=== PATIENT | female | born 1930 | race Caucasian/White ===

== ENCOUNTER 2019-11-11 09:13 | Inpatient (IN) | payer MEDICARE, MEDICAID ==
[~2019-11-11] VITALS: Ht 162.6 cm; Wt 68.2 kg
[~2019-11-11 09:13] MED LIST: ASPI81TA52 PO; BENA10TA PO; GLYB-97 PO; HYDR-4383 PO; HYDR1TAB69 PO; [UNRECOGNIZED DRUG - CODE] PO
[2019-11-11 10:25] LABS: CLARITY,URINE CLEAR (Clear); COLOR,URINE YELLOW (Yellow); GLUCOSE, URINE >=1000 mg/dl (Neg); KETONES,URINE TRACE mg/dl (Neg); LEUKOCYTE ESTERASE ,URINE NEGATIVE (Neg); NITRITES, URINE NEGATIVE (Neg); OCCULT BLOOD,URINE NEGATIVE (Neg); PROTEIN,URINE NEGATIVE (Neg); UROBILINOGEN,URINE 0.2 E.U/dL (0.2-1.0)
[2019-11-11 10:28] LABS: UA COLLECTION TYPE CLN CATCH MIDSTREAM
[2019-11-11 10:29] LABS: BASOPHILS # (AUTO) 0.1 X10'3 (0-0.2); BASOPHILS % (AUTO) 0.4 % (0-1); EOSINOPHILS % (AUTO) 0.1 % (0-6); HEMATOCRIT 35.2 % (35.0-45.0); HEMOGLOBIN 12.4 g/dl (12.0-16.0); LYMPHOCYTES % (AUTO) 7.8 % (21-51); MEAN CORPUSCULAR HEMOGLOBIN 29.7 PG (27.0-31.0); MEAN CORPUSCULAR HGB CONC 35.3 g/dL (33.0-36.5); MEAN PLATELET VOLUME 7.1 FL (7.4-10.4); MONOCYTES # (AUTO) 0.9 X10'3 (0-0.9); MONOCYTES % (AUTO) 6.6 % (2-12); NEUTROPHILS # (AUTO) 11.4 X10'3 (1.8-7.7); NEUTROPHILS % (AUTO) 85.1 % (42-75); PLATELET COUNT 271 X10'3 (140-440); RED BLOOD COUNT 4.19 X10'6 (4.20-5.60); RED CELL DISTRIBUTION WIDTH 12.3 % (11.5-14.5); WHITE BLOOD COUNT 13.4 X10'3 (4.5-11.0)
[2019-11-11 10:31] LABS: SQUAMOUS EPITHELIAL CELL,UR FEW /LPF (FEW)
[2019-11-11 10:33] LABS: BACTERIA,URINE FEW /HPF (Neg); RBC,URINE NONE SEEN /HPF (0-2); WBC,URINE 0-4 /HPF (0-4)
[2019-11-11 10:37] LABS: ALANINE AMINOTRANSFERASE 18 U/L (12-78); ALBUMIN 3.3 G/DL (3.4-5.0); ALKALINE PHOSPHATASE 72 IU/L (46-116); ANION GAP 10 (8-16); ASPARTATE AMINO TRANSFERASE 20 U/L (10-37); BLOOD UREA NITROGEN 10 MG/DL (7-18); BUN/CREATININE RATIO 10.6 (6.6-38.0); CALCIUM 9.5 MG/DL (8.5-10.1); CHLORIDE 82 MMOL/L (99-107); CREATININE 0.94 MG/DL (0.40-0.90); GLUCOSE 251 MG/DL (70-104); POTASSIUM 3.2 MMOL/L (3.5-5.1); TOTAL CARBON DIOXIDE 25.6 MMOL/L (24-32); TOTAL PROTEIN 6.7 G/DL (6.4-8.2); eGFR 56 ML/MIN
[2019-11-11 10:40] LABS: SODIUM 118 MMOL/L (135-145)
[2019-11-11] MEDS ORDERED: normal saline 1000ML IV soln IVB ONE (10:45)
[2019-11-11] MEDS: morphine 2 MG/ML inj. syringe IV PRN ×2 (10:46→13:59)
[2019-11-11] MEDS ORDERED: PRAV80TA3 PO (11:01)
[2019-11-11] MEDS ORDERED: HYDR25TA4 PO (11:01)
[2019-11-11] MEDS ORDERED: GABA-530 PO (11:01)
[2019-11-11] MEDS ORDERED: MELO-102 PO (11:01)
[2019-11-11] MEDS ORDERED: BENA40TA72 PO (11:01)
[2019-11-11] MEDS ORDERED: AMA1T PO (11:01)
[2019-11-11] MEDS ORDERED: mag hydrox/Alum hydrox/simeth 30ml oral suspension PO PRN (11:30)
[2019-11-11] MEDS ORDERED: magnesium hydroxide 30ml (MOM) UD suspension PO PRN (11:30)
[2019-11-11] MEDS ORDERED: magnesium 4gm in 100ml NS 100 ML IV PRN (11:30)
[2019-11-11] MEDS ORDERED: magnesium 2GM in 50ml NS 50 ML IV PRN (11:30)
[2019-11-11] MEDS ORDERED: magnesium Cl slow-release 64mg tablet PO PRN (11:30)
[2019-11-11] MEDS ORDERED: metoclopramide 5 mg/ml inj IV PRN (11:30)
[2019-11-11] MEDS ORDERED: potassium Cl 20 mEq SR tablet PO PRN ×2 (11:30)
[2019-11-11] MEDS ORDERED: HYDROcodone/acetaminophen 10/325mg tab PO PRN (11:30)
[2019-11-11] MEDS ORDERED: acetaminophen 325mg tablet PO PRN ×2 (11:30)
[2019-11-11] MEDS ORDERED: HYDROcodone/acetaminophen 5mg/325mg tablet PO PRN (11:30)
[2019-11-11] MEDS ORDERED: potassium CL 10mEq/100ml bag 100 ML IV PRN ×2 (11:30)
[2019-11-11] MEDS ORDERED: bisacodyl 10mg suppository rectal RC PRN (11:30)
[2019-11-11] MEDS: normal saline 1000ml 1,000 ML IV SCH ×2 (11:57→17:29)
[2019-11-11 12:21] LABS: HEMOGLOBIN A1C 8.4 % (4.5-6.2)
[2019-11-11] MEDS: ondansetron/PF 4mg/2ml inj IV PRN ×2 (13:59→20:47)
--- NOTE | 2019-11-11 14:15 | NUR ---
Patient agitated, yelling, stating "you all want to kill me, what did I do to you?... Take me back to my room..." Patient attempting to get out of bed, pulling at lines, orders received by Dr Haji.
[2019-11-11] MEDS: LORazepam 2 mg/ml vial IV PRN (14:19)
--- NOTE | 2019-11-11 14:45 | NUR ---
Attempted to place BP cuff back on patient, patient woke up and stated "get that shit off of my arm, get that out of my room." Patient reoriented, sitting safeluy in bed.
--- NOTE | 2019-11-11 16:00 | NUR ---
Pt received from ED at 1600. Pt transferred from [facility] to bed. Attempted to change pts bed d/t incontinence. Pt hit my arm 3xs and starting yelling racial and inappropriate names to myself. Pt went on and on during the Two person skin check and attempting to get IV fluids running. Pt's daughter came into pts room at 1645 and was upset with her mom's confusion. Informed pts daughter of lab tests and other aspects of transfer from ED and informed her that we will watch closely. Pt continued to yell multiple names and was combative in front of her daughter Hemalatha. Continued to educate Hemalatha with minimal understanding by daughter. TABS alarm and bed alarm set on pt. Pt refused dinner at 1730. Made recommendation to move pt to a closer room at 1700. Will be moved as soon as possible to room 4018.
[2019-11-11 16:15] VITALS: BP 135/71
[2019-11-11] MEDS ORDERED: dextrose ORAL solution 15 GM/59 ML bottle PO PRN ×2 (16:55)
[2019-11-11] MEDS ORDERED: MESSAGE TO PHARMACY PO ONE (16:55)
[2019-11-11] MEDS ORDERED: dextrose 50%-water 50ml dispensing syringe IV PRN ×2 (16:55)
[2019-11-11] MEDS ORDERED: glucagon, human recombinant 1mg kit SUBCUT PRN (16:55)
[2019-11-11 18:00] VITALS: BP 133/51
--- NOTE | 2019-11-11 18:00 | NUR ---
Patient in room ORTHO 4018. I have received report from BRAD Li and had the opportunity to ask questions and assume patient care.
[2019-11-11] MEDS: insulin Lispro (HumaLOG) vial - multi-dose SQ SCH (19:49)
[2019-11-11] MEDS: K and/or MAG REPLACEMENT MC SCH (20:00)
[2019-11-11] MEDS ORDERED: heparin, porcine 5000 units/ml vial SQ SCH (20:00)
[2019-11-11] MEDS: heparin, porcine 5000 units/ml vial SQ SCH (20:34)
[2019-11-11] MEDS: lisinopril 20mg tablet PO SCH (20:35)
[2019-11-11] MEDS ORDERED: temazepam 15mg capsule PO PRN (21:00)
[2019-11-11] MEDS: NYSTATIN CREAM - 30GM TUBE TP SCH (21:34)
[2019-11-11] MEDS: insulin glargine (Lantus) pen - multi-dose SQ SCH (21:36)
--- NOTE | 2019-11-12 02:36 | NUR ---
Pt reported having chest pain at 0140, EKG completed and reviewed by Dr. De Anda.
--- NOTE | 2019-11-12 05:59 | NUR ---
Problems reprioritized. Patient report given, questions answered & plan of care reviewed with BRAD Li.
[2019-11-12 06:00] VITALS: BP 115/73
[2019-11-12] MEDS: ondansetron/PF 4mg/2ml inj IV PRN (06:56)
[2019-11-12 06:57] LABS: BASOPHILS % (AUTO) 0.1 % (0-1); EOSINOPHILS % (AUTO) 0.1 % (0-6); HEMATOCRIT 32.2 % (35.0-45.0); HEMOGLOBIN 11.3 g/dl (12.0-16.0); LYMPHOCYTES # (AUTO) 1.2 X10'3 (1.1-4.8); LYMPHOCYTES % (AUTO) 11.4 % (21-51); MEAN CORPUSCULAR HEMOGLOBIN 29.7 PG (27.0-31.0); MEAN CORPUSCULAR VOLUME 84.9 FL (78-98); MEAN PLATELET VOLUME 7.4 FL (7.4-10.4); MONOCYTES # (AUTO) 0.6 X10'3 (0-0.9); MONOCYTES % (AUTO) 5.2 % (2-12); NEUTROPHILS # (AUTO) 8.8 X10'3 (1.8-7.7); NEUTROPHILS % (AUTO) 83.2 % (42-75); PLATELET COUNT 276 X10'3 (140-440); RED CELL DISTRIBUTION WIDTH 12.4 % (11.5-14.5); WHITE BLOOD COUNT 10.5 X10'3 (4.5-11.0)
[2019-11-12] MEDS: normal saline 1000ml 1,000 ML IV SCH (07:07)
[2019-11-12 07:22] LABS: ALANINE AMINOTRANSFERASE 19 U/L (12-78); ALBUMIN 2.8 G/DL (3.4-5.0); ALKALINE PHOSPHATASE 61 IU/L (46-116); ANION GAP 8 (8-16); ASPARTATE AMINO TRANSFERASE 24 U/L (10-37); BILIRUBIN,TOTAL 0.9 MG/DL (0.1-1.0); BLOOD UREA NITROGEN 8 MG/DL (7-18); BUN/CREATININE RATIO 9.3 (6.6-38.0); CALCIUM 8.5 MG/DL (8.5-10.1); CHLORIDE 85 MMOL/L (99-107); CREATININE 0.86 MG/DL (0.40-0.90); GLUCOSE 183 MG/DL (70-104); MAGNESIUM 1.5 MG/DL (1.5-2.4); POTASSIUM 3.5 MMOL/L (3.5-5.1); TOTAL CARBON DIOXIDE 26.8 MMOL/L (24-32); TOTAL PROTEIN 5.7 G/DL (6.4-8.2); eGFR 62 ML/MIN
[2019-11-12 07:26] LABS: SODIUM 120 MMOL/L (135-145)
[2019-11-12] MEDS ORDERED: dextrose 5%-1/4 normal saline 1,000 ML IV SCH (07:35)
[2019-11-12] MEDS: metroNIDAZOLE-Flagyl 500mg/NS 100 ML IV SCH ×3 (08:00→23:58)
[2019-11-12] MEDS: K and/or MAG REPLACEMENT MC SCH ×2 (08:00→20:00)
[2019-11-12] MEDS: NYSTATIN CREAM - 30GM TUBE TP SCH ×2 (08:00→21:12)
[2019-11-12] MEDS: heparin, porcine 5000 units/ml vial SQ SCH ×2 (08:00→20:00)
[2019-11-12] MEDS: LORazepam 2 mg/ml vial IV PRN (08:25)
[2019-11-12] MEDS: ciprofloxacin lact 400MG/200ML 200 ML IV SCH ×2 (08:31→20:58)
[2019-11-12] MEDS: Potassium Cl inj 20 MEQ in normal saline 1000ml 990 ML IV SCH (11:35)
[2019-11-12] MEDS ORDERED: haloperidol 1mg tablet PO PRN (11:35)
[2019-11-12] MEDS ORDERED: haloperidol lactate 5mg/ml inj IM ONE (11:55)
[2019-11-12] MEDS: insulin Lispro (HumaLOG) vial - multi-dose SQ SCH (13:41)
--- NOTE | 2019-11-12 13:58 | NUR ---
DM Consult: A1C 8.4 hx T2DM; admit w/ encephalopathy r/t hyponatremia Na 118 and nausea s/p fall. Noted takes HCTZ at home per EMR. AOx1 at this time not appropriate for DM ed; written ed w/ RD contact information placed in pt chart. Addendum: 11/12/19 at [address] Amended: Links added.
[2019-11-12] MEDS: famotidine 20mg tablet PO SCH ×2 (16:30→20:56)
[2019-11-12] MEDS: mag hydrox/Alum hydrox/simeth 30ml oral suspension PO SCH ×2 (16:42→21:00)
[2019-11-12 18:00] VITALS: BP 123/61
--- NOTE | 2019-11-12 18:05 | NUR ---
Patient in room ORTHO 4018. I have received report from BRAD Li and had the opportunity to ask questions and assume patient care.
--- NOTE | 2019-11-12 20:45 | NUR ---
Patient is agitated, trying to get out of bed. She is kicking, hitting, and cussing at staff.
[2019-11-12] MEDS: lactobacillus rhamnosus 10,000 MMU CELLS/CAPSULE PO SCH (20:56)
[2019-11-12] MEDS: lisinopril 20mg tablet PO SCH (20:57)
[2019-11-12] MEDS: insulin glargine (Lantus) pen - multi-dose SQ SCH (21:15)
[2019-11-12 22:00] VITALS: BP 123/53
[2019-11-13] MEDS: Potassium Cl inj 20 MEQ in normal saline 1000ml 990 ML IV SCH ×3 (00:02→16:20)
[2019-11-13] MEDS ORDERED: haloperidol lactate 5mg/ml inj IM ONE (04:25)
--- NOTE | 2019-11-13 05:03 | NUR ---
Patient woke up and became agitated and aggressive towards staff. Pulled tele off, refused to have it put back on. Security was called. Dr Rodríguez was notified, haladol was ordered and administered.
--- NOTE | 2019-11-13 05:40 | NUR ---
Patient refused to have labs drawn.
--- NOTE | 2019-11-13 06:27 | NUR ---
Problems reprioritized. Patient report given, questions answered & plan of care reviewed with BRAD Li.
[2019-11-13] MEDS: mag hydrox/Alum hydrox/simeth 30ml oral suspension PO SCH ×4 (07:00→21:00)
[2019-11-13] MEDS: heparin, porcine 5000 units/ml vial SQ SCH ×2 (08:00→20:00)
[2019-11-13] MEDS: NYSTATIN CREAM - 30GM TUBE TP SCH ×2 (08:00→20:00)
[2019-11-13] MEDS: K and/or MAG REPLACEMENT MC SCH ×2 (08:00→20:00)
[2019-11-13] MEDS: insulin Lispro (HumaLOG) vial - multi-dose SQ SCH ×3 (09:43→19:00)
--- NOTE | 2019-11-13 09:45 | NUR ---
Pt refused vital signs and lab draw this morning. Will retry lab orders later today.
[2019-11-13] MEDS: ciprofloxacin lact 400MG/200ML 200 ML IV SCH ×2 (09:48→21:06)
[2019-11-13] MEDS: lactobacillus rhamnosus 10,000 MMU CELLS/CAPSULE PO SCH ×2 (09:48→20:00)
[2019-11-13] MEDS ORDERED: famotidine 10mg tablet PO SCH (10:03)
[2019-11-13] MEDS: metroNIDAZOLE-Flagyl 500mg/NS 100 ML IV SCH ×2 (12:48→16:18)
--- NOTE | 2019-11-13 14:03 | NUR ---
covering for another nurse looked at insulin history and due to patient being sensitve to insulin Im giving a nutritional insulin dose of 3 units
[2019-11-13 16:51] LABS: BASOPHILS % (AUTO) 0.4 % (0-1); EOSINOPHILS % (AUTO) 0.2 % (0-6); HEMATOCRIT 32.7 % (35.0-45.0); HEMOGLOBIN 11.3 g/dl (12.0-16.0); LYMPHOCYTES # (AUTO) 1.4 X10'3 (1.1-4.8); LYMPHOCYTES % (AUTO) 13.6 % (21-51); MEAN CORPUSCULAR HEMOGLOBIN 29.5 PG (27.0-31.0); MEAN CORPUSCULAR HGB CONC 34.6 g/dL (33.0-36.5); MEAN CORPUSCULAR VOLUME 85.3 FL (78-98); MONOCYTES # (AUTO) 0.9 X10'3 (0-0.9); MONOCYTES % (AUTO) 8.1 % (2-12); NEUTROPHILS # (AUTO) 8.2 X10'3 (1.8-7.7); NEUTROPHILS % (AUTO) 77.7 % (42-75); PLATELET COUNT 271 X10'3 (140-440); RED BLOOD COUNT 3.83 X10'6 (4.20-5.60); RED CELL DISTRIBUTION WIDTH 12.6 % (11.5-14.5); WHITE BLOOD COUNT 10.6 X10'3 (4.5-11.0)
[2019-11-13 17:06] LABS: ALANINE AMINOTRANSFERASE 26 U/L (12-78); ALBUMIN 2.8 G/DL (3.4-5.0); ALKALINE PHOSPHATASE 62 IU/L (46-116); ANION GAP 6 (8-16); ASPARTATE AMINO TRANSFERASE 41 U/L (10-37); BILIRUBIN,TOTAL 0.6 MG/DL (0.1-1.0); BLOOD UREA NITROGEN 9 MG/DL (7-18); BUN/CREATININE RATIO 10.5 (6.6-38.0); CALCIUM 8.7 MG/DL (8.5-10.1); CHLORIDE 98 MMOL/L (99-107); CREATININE 0.86 MG/DL (0.40-0.90); GLUCOSE 86 MG/DL (70-104); POTASSIUM 3.8 MMOL/L (3.5-5.1); SODIUM 132 MMOL/L (135-145); TOTAL CARBON DIOXIDE 27.7 MMOL/L (24-32); TOTAL PROTEIN 5.7 G/DL (6.4-8.2); eGFR 62 ML/MIN
[2019-11-13 18:00] VITALS: BP 135/58
[2019-11-13] MEDS: lisinopril 20mg tablet PO SCH (21:00)
[2019-11-13] MEDS ORDERED: CIPR-173 PO (21:04)
[2019-11-13] MEDS ORDERED: MYC15CR TP (21:04)
[2019-11-13] MEDS ORDERED: METR-159 PO (21:04)
[2019-11-13] MEDS: insulin glargine (Lantus) pen - multi-dose SQ SCH (21:13)
[2019-11-13 22:00] VITALS: BP 171/75
[2019-11-14] MEDS: metroNIDAZOLE-Flagyl 500mg/NS 100 ML IV SCH (00:10)
[2019-11-14] MEDS: Potassium Cl inj 20 MEQ in normal saline 1000ml 990 ML IV SCH (03:35)
[2019-11-14 06:00] VITALS: BP 162/63
--- NOTE | 2019-11-14 06:15 | NUR ---
Patient in room ORTHO 4018. I have received report from Estella and had the opportunity to ask questions and assume patient care. Per NOC RN, pt will be discharging at 0700 today.
--- NOTE | 2019-11-14 06:26 | NUR ---
Problems reprioritized. Patient report given, questions answered & plan of care reviewed with BRAD Huber.
[2019-11-14 06:58] LABS: BASOPHILS % (AUTO) 0.3 % (0-1); EOSINOPHILS % (AUTO) 0.2 % (0-6); HEMATOCRIT 32.6 % (35.0-45.0); HEMOGLOBIN 11.1 g/dl (12.0-16.0); LYMPHOCYTES # (AUTO) 1.2 X10'3 (1.1-4.8); LYMPHOCYTES % (AUTO) 12.8 % (21-51); MEAN CORPUSCULAR HEMOGLOBIN 29.5 PG (27.0-31.0); MEAN CORPUSCULAR HGB CONC 34.2 g/dL (33.0-36.5); MEAN CORPUSCULAR VOLUME 86.2 FL (78-98); MEAN PLATELET VOLUME 7.4 FL (7.4-10.4); MONOCYTES # (AUTO) 0.5 X10'3 (0-0.9); MONOCYTES % (AUTO) 5.9 % (2-12); NEUTROPHILS # (AUTO) 7.4 X10'3 (1.8-7.7); NEUTROPHILS % (AUTO) 80.8 % (42-75); PLATELET COUNT 273 X10'3 (140-440); RED BLOOD COUNT 3.78 X10'6 (4.20-5.60); RED CELL DISTRIBUTION WIDTH 12.5 % (11.5-14.5); WHITE BLOOD COUNT 9.2 X10'3 (4.5-11.0)
--- NOTE | 2019-11-14 07:00 | NUR ---
Reviewed discharge instructions with pt, meds, pt was dressed and wheeled downstairs to be driven home by her daughter.
[2019-11-14 07:23] LABS: ALANINE AMINOTRANSFERASE 26 U/L (12-78); ALBUMIN 2.8 G/DL (3.4-5.0); ALKALINE PHOSPHATASE 59 IU/L (46-116); ANION GAP 8 (8-16); ASPARTATE AMINO TRANSFERASE 39 U/L (10-37); BILIRUBIN,TOTAL 0.5 MG/DL (0.1-1.0); BLOOD UREA NITROGEN 8 MG/DL (7-18); CALCIUM 8.8 MG/DL (8.5-10.1); CHLORIDE 98 MMOL/L (99-107); GLUCOSE 124 MG/DL (70-104); MAGNESIUM 1.7 MG/DL (1.5-2.4); POTASSIUM 3.8 MMOL/L (3.5-5.1); SODIUM 131 MMOL/L (135-145); TOTAL CARBON DIOXIDE 25.3 MMOL/L (24-32); TOTAL PROTEIN 5.5 G/DL (6.4-8.2); eGFR 68 ML/MIN
== END 2019-11-14 07:00 | disposition home or self-care (01) | DRG 391 ==
LOC: ER 09:15 → ED HOLD 11:30 → ORTHO 4S 16:15
PROVIDERS: ADMIT Family Medicine; ATTEND Family Medicine
DX: K57.92 Diverticulitis of intestine, part unspecified, without perforation or abscess without bleeding (principal); G93.41 Metabolic encephalopathy; E87.1 Hypo-osmolality and hyponatremia; N17.9 Acute kidney failure, unspecified; M25.552 Pain in left hip; E87.6 Hypokalemia; D72.829 Elevated white blood cell count, unspecified; M79.3 Panniculitis, unspecified; E11.9 Type 2 diabetes mellitus without complications; E78.00 Pure hypercholesterolemia, unspecified; E78.5 Hyperlipidemia, unspecified; F03.90 Unspecified dementia, unspecified severity, without behavioral disturbance, psychotic disturbance, mood disturbance, and anxiety; M19.90 Unspecified osteoarthritis, unspecified site; I10 Essential (primary) hypertension; W18.39XA Other fall on same level, initial encounter; Y93.89 Activity, other specified; Y92.89 Other specified places as the place of occurrence of the external cause; Y99.8 Other external cause status; Z83.3 Family history of diabetes mellitus
CPT/HCPCS: 36415; 70450; 71045; 72192; 73502; 80053; 81001; 82948; 83036; 83735; 84443; 85025; 85610; 87081; 93005; 96360; 97161; 97530; 97535; 99285; G0378; J0744; J1630; J1644; J1815; J2060; J2270; J2405; J2765; J3480; J3490; J7030